=== PATIENT | male | born 1965 | race Caucasian/White ===

== ENCOUNTER 2020-11-29 18:34 | Emergency (ER) | payer OTHER ==
[~2020-11-29] VITALS: Ht 175.3 cm; Wt 108.9 kg
[2020-11-29 18:34] VITALS: BP 161/94
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
[2020-11-29] MEDS ORDERED: ADACEL VIAL IM ONE ×3 (19:00→19:32)
[2020-11-29] MEDS ORDERED: MORPHINE SULFATE ONE (19:09)
[2020-11-29] MEDS ORDERED: MORPHINE SULFATE IV STA (19:14)
--- NOTE | 2020-11-29 19:24 | DIREP ---
PROCEDURE:CHEST 1 VIEW COMPARISON:None. INDICATIONS:Pain/injury FINDINGS: LUNGS/PLEURA:No significant pulmonary parenchymal abnormalities. No effusions. VASCULATURE:Normal. Unremarkable pulmonary vasculature. CARDIAC:Normal. No cardiac silhouette abnormality or cardiomegaly. MEDIASTINUM:Normal. No visible mass or adenopathy. BONES:Mild degenerative changes. No acute bony abnormality. OTHER:Negative. CONCLUSION:No acute pulmonary process. Dictated by: Ora Velasquez M.D. on 11/29/2020 at 07:21 PM
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
--- NOTE | 2020-11-29 20:20 | DIREP ---
PROCEDURE:XRAY ELBOW 2VWS-RT COMPARISON:None. INDICATIONS:Pain/injury FINDINGS: BONES:Normal. JOINTS:Normal. No displaced anterior or posterior fat pads. SOFT TISSUES:Normal. OTHER:Normal. CONCLUSION:No abnormality noted. Dictated by: Ora Velasquez M.D. on 11/29/2020 at 08:18 PM
--- NOTE | 2020-11-29 20:21 | DIREP ---
PROCEDURE:XRAY SHOULDER MIN 2 VWS-RT COMPARISON:None. INDICATIONS:Pain/injury FINDINGS: BONES:No acute abnormality. JOINTS:Mild acromioclavicular arthrosis. SOFT TISSUES:Normal. OTHER:Normal. CONCLUSION:Mild acromioclavicular arthrosis without acute bony abnormality. Dictated by: Ora Velasquez M.D. on 11/29/2020 at 08:19 PM
[2020-11-29 20:28] VITALS: BP 142/91
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
== END 2020-11-29 21:30 | disposition home or self-care (01) ==
LOC: ER 18:34
DX: S46.911A Strain of unspecified muscle, fascia and tendon at shoulder and upper arm level, right arm, initial encounter (principal); E78.00 Pure hypercholesterolemia, unspecified; I10 Essential (primary) hypertension; V23.4XXA Motorcycle driver injured in collision with car, pick-up truck or van in traffic accident, initial encounter; Y93.89 Activity, other specified; Y92.488 Other paved roadways as the place of occurrence of the external cause; Y99.8 Other external cause status
CPT/HCPCS: 71045; 73030; 73070; 90471; 90715; 96374; 99284; J2270